=== PATIENT | male | born 1930 | race Hispanic/Latino ===

== ENCOUNTER 2018-01-04 14:23 | Emergency (ER) | payer SELFPAY ==
[2018-01-04] MEDS ORDERED: LIPITOR10 M1 PO (14:45)
[2018-01-04] MEDS ORDERED: LEVOTHYROXIN50 MCG PO (14:45)
[2018-01-04] MEDS ORDERED: TAMSULOSIN0.4 MG PO (14:46)
[2018-01-04] MEDS ORDERED: PANTOPRAZOLE SO40 MG PO (14:46)
[2018-01-04] MEDS ORDERED: ZIPRASIDONE HCL20 MG PO (14:46)
[2018-01-04] MEDS ORDERED: ALPRAZOLAM0.25 MG PO (14:46)
[2018-01-04] MEDS ORDERED: [UNRECOGNIZED DRUG - OTHER] PO (14:47)
[2018-01-04] MEDS ORDERED: ADULT ASPIRIN E81 MG PO (14:48)
[2018-01-04] MEDS ORDERED: RISPERDAL0.25 MG PO (14:48)
[2018-01-04 17:05] VITALS: BP 147/88
== END 2018-01-04 17:05 | disposition home or self-care (01) | DRG 563 ==
LOC: ED 14:23
DX: S82.002A Unspecified fracture of left patella, initial encounter for closed fracture (principal); F03.90 Unspecified dementia, unspecified severity, without behavioral disturbance, psychotic disturbance, mood disturbance, and anxiety; K21.9 Gastro-esophageal reflux disease without esophagitis; Z86.718 Personal history of other venous thrombosis and embolism; X58.XXXA Exposure to other specified factors, initial encounter